=== PATIENT | female | born 1965 | race Caucasian/White ===

== ENCOUNTER → 2017-07-15 | Outpatient (CLI) | payer BC ==
[~2017-07-15] MED LIST: ESTRACE2 MG PO; ESTRIOL; PERCOCET 5/321 UDTAB PO; PHENERGAN 25 TA25 MG PO; SUDAFED 12HR120 MG PO; TRAZADONE HYDR100 MG PO; TRAZODONE150 MG PO; WELLBUTRIN PO; ZYRTEC5 MG PO
== END ==
LOC: MC.RAD 10:12
DX: Z12.31 Encounter for screening mammogram for malignant neoplasm of breast (principal)

== ENCOUNTER → 2017-10-25 | Outpatient (CLI) | payer BC | LOC: COL.RAD 08:41 | DX: K57.30 Diverticulosis of large intestine without perforation or abscess without bleeding (principal) ==

== ENCOUNTER → 2018-05-09 | Outpatient (CLI) | payer BC | LOC: COL.RAD 10:14 | DX: R10.9 Unspecified abdominal pain (principal) | CPT/HCPCS: Q9967 ==

== ENCOUNTER → 2018-06-06 | Outpatient (CLI) | payer BC | LOC: COL.RAD 08:15 | DX: M25.551 Pain in right hip (principal) ==

== ENCOUNTER → 2018-06-16 | Outpatient (CLI) | payer BC | LOC: COL.RAD 13:16 | DX: S73.191A Other sprain of right hip, initial encounter (principal); M85.40 Solitary bone cyst, unspecified site | CPT/HCPCS: A9585; Q9967 ==

== ENCOUNTER → 2018-06-23 | Outpatient (CLI) | payer BC | LOC: COL.RAD 13:00 | DX: S73.101A Unspecified sprain of right hip, initial encounter (principal); M16.11 Unilateral primary osteoarthritis, right hip | CPT/HCPCS: J3301; Q9967 ==

== ENCOUNTER → 2018-08-04 | Outpatient (CLI) | payer BC | LOC: MC.RAD 10:50 | DX: Z12.31 Encounter for screening mammogram for malignant neoplasm of breast (principal) ==

== ENCOUNTER → 2018-12-05 | Outpatient (CLI) | payer BC | LOC: COL.RAD 12:46 | DX: M25.551 Pain in right hip (principal) | CPT/HCPCS: J3301; Q9967 ==

== ENCOUNTER → 2019-09-07 | Outpatient (CLI) | payer BC | LOC: MC.RAD 13:18 | DX: Z12.31 Encounter for screening mammogram for malignant neoplasm of breast (principal) ==

== ENCOUNTER → 2020-08-15 | Outpatient (CLI) | payer BC | LOC: MC.RAD 10:44 | DX: Z12.31 Encounter for screening mammogram for malignant neoplasm of breast (principal) ==

== ENCOUNTER → 2022-10-04 | Outpatient (CLI) | payer BC | LOC: MC.RAD 08:39 | DX: Z12.31 Encounter for screening mammogram for malignant neoplasm of breast (principal) ==

== ENCOUNTER → 2023-10-07 | Outpatient (CLI) | payer BC | LOC: MC.RAD 13:42 | DX: R92.8 Other abnormal and inconclusive findings on diagnostic imaging of breast (principal) ==